=== PATIENT | female | born 1945 | race Caucasian/White ===

== ENCOUNTER 2019-09-01 13:21 | Outpatient (CLI) | payer MEDICARE ==
--- NOTE | 2019-09-01 15:00 | MRI ---
MRI LUMBAR SPINE WITHOUT CONTRAST: HISTORY: Low back pain. Recent fall. COMPARISON: 06/12/2017 FINDINGS: Vertebral body numbering will be kept consistent with the prior exam. The edema previously associated with the L5 vertebral body is no longer present. There is now prominent increased T2 signal and dimi nished T1 signal throughout the sacrum, including dominant, vertically oriented signal abnormalities along each side of the sacral body. No displacement. Minimal chronic appearing loss of height of the T11 vertebral body, the L2 vertebral body and the L4 superior endplate without residual edema. The conus medullaris has a normal appearance. Discogenic endplate changes within the bone marrow. T12-L1: Mild disk bulge. Osteophytosis. Central canal and neural foramina remain patent. L1-L2: Mild disk bulge. Osteophytosis. Central canal is patent. Mild right foraminal stenosis. L2-L3: Disk space narrowing. Mild disk bulge and circumferential degenerative changes. Mild stenosis of the central canal. L3-L4: Minimal degenerative retrolisthesis. Posterior disk bulge and circumferential degenerative chong nges. Moderate stenosis of the central canal. Moderate right and severe left foraminal stenosis. L4-L5: Grade 1 degenerative spondylolisthesis. Posterior pseudo bulge of the disk. Thecal sac remains patent. Moderate right and severe left foraminal stenosis. L5-S1: Osteophytosis of the facets. Thecal sac and neural foramina remain patent. IMPRESSION: 1. Severe insufficiency fracture involving both sides of the sacrum. No displacement evident on MRI. 2. Interval resolution of the edema associated with the mild L5 compression injury. 3. Multilevel degenerative changes throughout the lumbar spine as detailed above including severe for aminal stenoses and significant central canal stenosis. POS: TPC
== END 2019-09-01 13:22 | disposition home or self-care (01) ==
LOC: MRI 13:21
PROVIDERS: ATTEND Neurological Surgery
DX: M48.56XA Collapsed vertebra, not elsewhere classified, lumbar region, initial encounter for fracture (principal); M54.5 Low back pain; S32.10XA Unspecified fracture of sacrum, initial encounter for closed fracture; M47.816 Spondylosis without myelopathy or radiculopathy, lumbar region; M48.061 Spinal stenosis, lumbar region without neurogenic claudication
CPT/HCPCS: 72148

== ENCOUNTER 2020-01-01 12:25 | Inpatient (IN) | payer MEDICARE ==
[~2020-01-01 12:25] MED LIST: Dexamethasone 20 MG/5 ML VIAL ONE; Lidocaine 1% PF 5 ML VIAL ONE; Ondansetron PF 4 MG/2 ML Vial ONE; PHENYLEPHRINE-NS 100 MCG/ML 10 ML SYRINGE ONE; PROPOFOL 200 MG/20 ML VIAL ONE
[2020-01-01] MEDS ORDERED: Morphine 4 MG/ML VIAL ONE (13:55)
--- NOTE | 2020-01-01 15:03 | RAD ---
AP PELVIS: Date: 01/01/2020 HISTORY: Fall. FINDINGS: The bony pelvis is intact. There is an intertrochanteric fracture at the left hip. There are degenerative changes at both hips. IMPRESSION: Acute left hip fracture. POS: JIE
--- NOTE | 2020-01-01 15:03 | RAD ---
PORTABLE CHEST: Date: 01/01/2020 HISTORY: Fall. FINDINGS: Lungs are clear. Heart and mediastinum unremarkable. Review of osseous structures show deformity of t he right humeral head and neck from old fracture and operative changes at the left humeral head and n annetta. IMPRESSION: No acute abnormality. POS: NICOLE
--- NOTE | 2020-01-01 15:04 | RAD ---
LEFT HIP 2 VIEWS: Date: 01/01/2020 HISTORY: Fall. FINDINGS: Intertrochanteric fracture involving the proximal left femur with slight displacement. Degenerative c hanges at the hip joint. IMPRESSION: Acute left hip fracture. POS: JIE
[2020-01-01 15:24] LABS: #Basophils 0.1 thou/uL (0.0-0.2); #Eosinphils 0.1 thou/uL (0.0-0.7); #Lymphocytes 2.1 thou/uL (1.20-3.40); #Monocytes 1.1 thou/uL (0.11-0.59); #Neutrophils 4.6 thou/uL (1.40-6.50); %Basophils 1.5 % (0.0-1.0); %Eosinophils 1.1 % (0.0-10.0); %Monocytes 13.9 % (0.0-10.0); %Neutrophils 57.4 % (42.0-75.0); Hemoglobin 13.7 g/dL (12.0-16.0); Mean Corpuscular Hemoglobin 33.3 pg (27.0-31.0); Mean Platelet Volume 6.6 fL (7.4-10.4); Platelet Count 329 thou/uL (130-400); RBC Distribution Width 12.9 % (11.5-14.5); Red Blood Cell (RBC) Count 4.11 mill/uL (4.20-5.40); White Blood Cell (WBC) Count 8.1 thou/uL (4.8-10.8)
[2020-01-01 15:32] LABS: PTT 30.3 SEC (22.9-36.1); Prothrombin Time 13.1 SEC (12.0-14.7)
[2020-01-01 15:48] LABS: ALT (SGPT) 14 U/L (8-55); AST (SGOT) 16 U/L (5-34); Albumin 4.3 g/dL (3.4-4.8); Alkaline Phosphatase 99 U/L (40-110); Anion Gap 16 mmol/L (10-20); BUN (Urea Nitrogen) 15 mg/dL (9.8-20.1); Bilirubin, Total 0.4 mg/dL (0.2-1.2); Calc. Creatinine Clearance 0 mL/min (70-130); Carbon Dioxide 24 mmol/L (23-31); Chloride 103 mmol/L (98-107); Estimated GFR-MDRD 49; Globulin 2.5 g/dL (2.4-3.5); Glucose 148 mg/dL (83-110); Magnesium 1.7 mg/dL (1.6-2.6); Phosphorus 3.6 mg/dL (2.3-4.7); Protein, Total 6.8 g/dL (6.0-8.3); Sodium 139 mmol/L (136-145)
[2020-01-01] MEDS ORDERED: Morphine 2 MG/ML SYRINGE SLOW IVP PRN ×2 (16:46→19:43)
[2020-01-01] MEDS ORDERED: Insulin Regular 300 UNITS/3 ML VIAL SC PRN (16:46)
[2020-01-01] MEDS ORDERED: Dextrose 50% Abboject 50 ML SYRINGE SLOW IVP PRN (16:46)
[2020-01-01] MEDS ORDERED: Dextrose 5% in Water 1,000 ML IV PRN (16:46)
[2020-01-01] MEDS ORDERED: Ondansetron PF 4 MG/2 ML Vial IVP PRN (16:46)
[2020-01-01] MEDS ORDERED: Morphine 4 MG/ML VIAL SLOW IVP PRN (16:46)
[2020-01-01] MEDS ORDERED: Ondansetron ODT 4 MG TAB PO PRN (16:46)
[2020-01-01] MEDS ORDERED: hydrALAZINE 20 MG/ML VIAL SLOW IVP PRN (16:46)
[2020-01-01] MEDS ORDERED: Cyclobenzaprine 10 MG TAB PO PRN (16:53)
[2020-01-01] MEDS ORDERED: Sodium Chloride 0.9% 1,000 ML IV SCH (17:00)
[2020-01-01] MEDS ORDERED: Fentanyl 100 MCG/2 ML VIAL ONE (17:20)
--- NOTE | 2020-01-01 17:24 | HP ---
REQUESTING PHYSICIAN: Dr. Lopez. ATTENDING: Dr. Head. CONSULTS: Orthopedic Surgery, Dr. Koehler. CHIEF COMPLAINT: Tripped and fell. HISTORY OF PRESENT ILLNESS: This is a 74-year-old lady, who presented to the emergency room via EMS after she tripped over her dog at her home causing her to fall landing on her left side. The patient denies hitting her head or having any loss of consciousness. The patient states that she had just gotten home from Thursday school and was about to get lunch. The patient denies feeling weak, dizzy, having any chest pain or shortness of breath prior to tripping over the dog. The patient denies being on any anticoagulation. The patient was given fentanyl by EMS for pain and also morphine in the emergency room for pain. Currently, her pain is tolerable at this time. The patient frequently gets her right knee injected by Dr. Olmedo. The patient states she is due for an injection. She complains of some soreness into her right knee after falling. 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 PAST SURGICAL HISTORY: Hysterectomy, cholecystectomy, left arm injury screws placed, tonsillectomy. SOCIAL HISTORY: Reports occasional alcohol use, 2 to 3 glasses of wine a week, no illicit drug use, no history of smoking. The patient lives at home with her . ALLERGIES: ADHESIVE TAPE, SULFA CAUSES HER TO BE NAUSEATED. CURRENT MEDICATIONS: 1. Metformin 1000 mg 2 times a day. 2. Torsemide 20 mg once a day. 3. Escitalopram 20 mg once a day. 4. Simvastatin 20 mg a day. 5. Trazodone 150 mg as needed. 6. Diltiazem extended release 240 mg. REVIEW OF SYSTEMS: A 10-point review of systems is negative unless otherwise indicated in the above HPI. PHYSICAL EXAMINATION: VITAL SIGNS: Blood pressure 138/83, pulse 64, respirations 16, SpO2 of 96% on room air, temperature 98.3. GENERAL: Well-appearing elderly female, awake, alert, in no distress. HEENT: Head is atraumatic and normocephalic. Extraocular muscles intact, oropharynx exam normal, mucous membranes are moist. NECK: Normal range of motion. No cervical spine tenderness. Trachea midline. CHEST: Equal chest rise and fall, bilateral breath sounds clear, no wheezing, rales, or rhonchi. CARDIAC: Regular rate, regular rhythm. No murmurs. No pedal edema. ABDOMEN: Soft, nontender, nondistended. EXTREMITIES: Left lower extremity with external rotation and shortening, distal pulses 2+, normal sensation, all other extremities are unremarkable. Distal pulses intact. Normal range of motion. No obvious deformity to the right knee, but the patient reports chronic right knee pain. Varicose veins noted on bilateral lower extremities. NEUROLOGIC: No focal deficit, GCS 15. LABORATORY DATA: WBC 8.1, RBC 4.11, hemoglobin 13.7, hematocrit 41.4, platelets 329. PT 13.1, INR 1.0. APTT 30.3. Sodium 139, potassium 4.0, chloride 103, BUN 15, creatinine 1.09, estimated GFR 49, calcium 10.0, phosphorus 3.6, magnesium 1.7. AST 16, ALT 14, alkaline phos 99. Pelvis x-ray intertrochanteric fracture at the left hip. There are degenerative changes at both hips. Left intertrochanteric fracture involving the proximal femur with slight displacement. Right knee x-ray, pending. IMPRESSION: 1. Ground level fall. 2. Left intertrochanteric proximal femur fracture. 3. History of hypertension, diabetes, splenectomy, pancreatic tumor. PLAN: N.p.o. Pain management. The patient will go to the OR later this evening with Dr. Koehler for repair of the left IT hip fracture. We will place the patient on maintenance fluids at normal saline at 100 mL an hour. The patient will be admitted to the surgical floor postop. We will have Physical Therapy and Occupational Therapy work with the patient most likely tomorrow morning. We will place a rehab screen as the patient may likely need additional inpatient rehab. We will place the patient on a sliding scale with q.6 hours Accu-Chek. The plan was discussed with the attending who agrees. The plan was discussed with the patient who agrees. Job ID: [id number] [facility]
[2020-01-01] MEDS ORDERED: Promethazine HCl 25 MG/ML VIAL SLOW IVP PRN (17:41)
[2020-01-01] MEDS ORDERED: Promethazine HCl 25 MG/ML VIAL IM PRN (17:41)
[2020-01-01] MEDS ORDERED: Ondansetron HCl/PF 4 MG/2 ML Vial IVP PRN (17:41)
--- NOTE | 2020-01-01 17:57 | RAD ---
EXAM: XR Knee Rt 4 View STANDARD PROVIDED CLINICAL HISTORY: Pain FINDINGS: There is no evidence for fracture or other acute osseous abnormality. Alignment appears anatomic. Adv anced degenerative changes are seen with medial femorotibial joint space narrowing and intra-articular bodies overlying the expected location of Farrell's cyst. IMPRESSION: No evidence for an acute osseous abnormality. If there is persistent clinical concern, conservative m anagement and follow-up imaging advised.
--- NOTE | 2020-01-01 19:06 | RAD ---
EXAM: XR Hip Lt 2-3 View PROVIDED CLINICAL HISTORY: ORIF COMPARISON: 01/01/2020 1:44 PM FINDINGS: Spot fluoroscopic frontal and frog-leg lateral views of the left hip demonstrate interval placement o f dynamic hip screw transfixing previously described left proximal femoral fracture with resultant improved alignment. IMPRESSION: As above.
[2020-01-01] MEDS: Gabapentin 100 MG CAP PO SCH (21:00)
[2020-01-01] MEDS: Senokot S 8.6-50 MG TAB PO SCH (21:00)
[2020-01-01] MEDS: traMADol HCl 50 MG TAB PO PRN (21:01)
[2020-01-01] MEDS: traMADol HCl 50 MG TAB PO SCH (21:02)
[2020-01-01] MEDS: Acetaminophen 500 MG TAB PO SCH (21:02)
[2020-01-01 21:11] VITALS: BMI 23.3
--- NOTE | 2020-01-01 22:30 | OP ---
DATE OF PROCEDURE: 01/01/2020 PREOPERATIVE DIAGNOSIS: Left intertrochanteric femur fracture. POSTOPERATIVE DIAGNOSIS: Left intertrochanteric femur fracture. PROCEDURE PERFORMED: Dynamic hip screw, left intertrochanteric femur fracture. ANESTHESIA: General. IMPLANT: Synthes 3-hole 135 degree DHS side plate with 95 mm hip screw. ESTIMATED BLOOD LOSS: 50 mL. COMPLICATIONS: None. DRAINS: None. SPECIMEN: None. OUTCOME: Satisfactory reduction and hardware placement. INDICATIONS: The patient is a pleasant 74-year-old lady, status post ground level fall sustaining an intertrochanteric femur fracture. After discussion with the patient including risks and benefits, we decided to proceed with open reduction and internal fixation of this fracture with a DHS device. Informed consent has been obtained. I believe all questions have been answered. DESCRIPTION OF PROCEDURE: The patient was brought to the operating room and a time-out performed followed by induction of general anesthesia. Next, she was positioned supine on the fracture table with the well leg held in extension and slight hyperextension with the injured extremity held in longitudinal traction and slight internal rotation. Next, a sterile prep and drape was performed of this left lateral thigh. Next, a skin incision was made proximal to the greater trochanter. After skin was sharply incised, dissection was carried down to the underlying fascia amos. This was incised in line with the skin incision as was the fascia of the vastus lateralis. The muscle belly of the vastus lateralis was reflected anteriorly gaining access to the lateral cortex of the femur. A threaded guidewire was then passed from the lateral cortex of the femur up the femoral neck into the femoral head. Once appropriately positioned, measurement was taken off this pin and the step drill was set to this depth. The step drill was then passed over the guidewire, reaming the femoral neck and head. Next, 135-degree 3-hole side plate with appropriate length hip screw was inserted into the wound with hip screw driven all the way up approaching the center-center position of the femoral head. The plate was then affixed to the lateral cortex of the femur using three 4.5 mm cortical screws. Final AP and lateral C-arm images were then obtained. The wound was irrigated with bulb syringe, then closed in layers with 0 Vicryl for the tensor fascia and fascia amos followed by 2-0 Vicryl and then jessy for the skin. Xeroform gauze and tape dressing were applied to the lateral thigh and the patient was transferred to recovery room in stable condition. There were no complications. She tolerated the procedure well. Job ID: [id number]
[2020-01-01 22:48] LABS: #Basophils 0.1 thou/uL (0.0-0.2); #Lymphocytes 0.7 thou/uL (1.20-3.40); #Monocytes 0.3 thou/uL (0.11-0.59); #Neutrophils 11.9 thou/uL (1.40-6.50); %Basophils 0.5 % (0.0-1.0); %Eosinophils 0.2 % (0.0-10.0); %Lymphocytes 5.6 % (21.0-51.0); %Monocytes 2.4 % (0.0-10.0); %Neutrophils 91.3 % (42.0-75.0); Hemoglobin 12.3 g/dL (12.0-16.0); Mean Corpuscular HGB CONC 33.4 g/dL (32.0-36.0); Mean Corpuscular Hemoglobin 33.8 pg (27.0-31.0); Mean Platelet Volume 6.7 fL (7.4-10.4); Platelet Count 314 thou/uL (130-400); RBC Distribution Width 12.7 % (11.5-14.5); Red Blood Cell (RBC) Count 3.62 mill/uL (4.20-5.40)
[2020-01-01 22:54] LABS: Prothrombin Time 13.4 SEC (12.0-14.7)
[2020-01-01 23:16] LABS: Anion Gap 15 mmol/L (10-20); BUN (Urea Nitrogen) 15 mg/dL (9.8-20.1); Calc. Creatinine Clearance 41 mL/min (70-130); Calcium 9.1 mg/dL (7.8-10.44); Carbon Dioxide 23 mmol/L (23-31); Chloride 102 mmol/L (98-107); Estimated GFR-MDRD 44; Glucose 335 mg/dL (83-110); Magnesium 1.6 mg/dL (1.6-2.6); Phosphorus 5.1 mg/dL (2.3-4.7); Potassium 4.4 mmol/L (3.5-5.1); Sodium 136 mmol/L (136-145)
[2020-01-01] MEDS ORDERED: Hydrocortisone Sod Succ/PF 100 mg/2 ml Vial IVP SCH (23:45)
--- NOTE | 2020-01-01 23:45 | PRG ---
DATE OF SERVICE: 01/01/2020 SUBJECTIVE: The patient was seen this evening during rounds. She was resting comfortably and asleep with no signs of acute distress. She is postoperative day 0 after a dynamic hip screw of the left intertrochanteric femur fracture. Nursing reported the patient's blood pressure has slowly dropped since returning from the PACU now with systolic in the 90s. The patient is not tachycardic and not symptomatic. Repeat blood work completed this evening postoperatively. OBJECTIVE: VITAL SIGNS: Temperature 97.8, pulse 86, respirations 18, oxygen saturation 96% on room air, blood pressure 99/62. GENERAL: Well-appearing elderly female, lying in bed, asleep, but no signs of acute distress. PULMONARY: Equal chest rise and fall. No signs of acute respiratory distress. ASSESSMENT: 1. Status post mechanical fall from standing. 2. Left intertrochanteric femur fracture, status post repair. 3. Postoperative hypotension. 4. History of diabetes, hypertension, splenectomy, partial pancreatectomy, and depression. PLAN: Continue diabetic diet. We will continue normal saline at 100 an hour for a total of 1 L. Continue Tracy overnight. We will start her home medications as clinically indicated. We will repeat blood work this evening to include a cortisol level, and we will treat her hypotension accordingly. She will start working with Physical and Occupational Therapy in the morning and will likely need placement in an acute rehab facility. Job ID: [id number]
[2020-01-02] MEDS: Acetaminophen 500 MG TAB PO SCH ×5 (00:38→23:46)
[2020-01-02] MEDS: traMADol HCl 50 MG TAB PO SCH ×5 (00:39→23:47)
[2020-01-02] MEDS: CEFAZOLIN 2 GM in Premix Bag 1 BAG IVPB SCH ×3 (00:39→17:53)
[2020-01-02 04:54] LABS: Anion Gap 14 mmol/L (10-20); BUN (Urea Nitrogen) 15 mg/dL (9.8-20.1); Calc. Creatinine Clearance 41 mL/min (70-130); Calcium 8.8 mg/dL (7.8-10.44); Carbon Dioxide 25 mmol/L (23-31); Chloride 102 mmol/L (98-107); Estimated GFR-MDRD 43; Glucose 348 mg/dL (83-110); Magnesium 1.6 mg/dL (1.6-2.6); Phosphorus 5.2 mg/dL (2.3-4.7); Potassium 4.5 mmol/L (3.5-5.1); Sodium 136 mmol/L (136-145)
[2020-01-02 05:25] LABS: Band 34 % (5-11); Hemoglobin 11.9 g/dL (12.0-16.0); Lymphocytes 5 % (21-51); MDiff Complete? YES; Mean Corpuscular HGB CONC 33.8 g/dL (32.0-36.0); Mean Corpuscular Hemoglobin 34.2 pg (27.0-31.0); Monocytes 2 % (0-10); Neutrophil 59 % (42-75); Platelet Count 307 thou/uL (130-400); RBC Distribution Width 12.8 % (11.5-14.5); Red Blood Cell (RBC) Count 3.48 mill/uL (4.20-5.40); White Blood Cell (WBC) Count 10.3 thou/uL (4.8-10.8)
[2020-01-02] MEDS: Hydrocortisone Sod Succ/PF 100 mg/2 ml Vial IVP SCH ×4 (05:49→23:47)
[2020-01-02] MEDS: Insulin Regular 300 UNITS/3 ML VIAL SC PRN ×3 (05:50→16:38)
[2020-01-02] MEDS ORDERED: Clopidogrel Bisulfate 75 MG TAB ONE (07:48)
[2020-01-02] MEDS ORDERED: Pancrelipase DR 12000 1 CAP PO SCH (08:00)
[2020-01-02] MEDS: Pancrelipase DR 12000 1 CAP PO SCH ×3 (08:43→16:40)
[2020-01-02] MEDS: Gabapentin 100 MG CAP PO SCH ×3 (08:46→21:23)
[2020-01-02] MEDS: Senokot S 8.6-50 MG TAB PO SCH ×2 (08:47→21:22)
[2020-01-02] MEDS: metFORMIN 500 MG TAB PO SCH ×2 (08:47→16:38)
[2020-01-02] MEDS: Polyethylene Glycol 3350 17 GM Packet PO SCH (08:47)
[2020-01-02] MEDS: Escitalopram Oxalate 20 mg Tablet PO SCH (08:47)
[2020-01-02] MEDS: Enoxaparin Sodium 30 MG/0.3 ML SYRINGE SC SCH (08:48)
[2020-01-02] MEDS ORDERED: Sodium Chloride 0.9% 500 ML IV SCH (15:15)
--- NOTE | 2020-01-02 15:54 | PRG ---
DATE OF SERVICE: 01/02/2020 SUBJECTIVE: The patient was seen this morning on rounds. She was doing well and states that her pain was very well controlled. She was AAO x3. She states that she has been working with physical therapy already this morning and has been ambulatory. OBJECTIVE: VITAL SIGNS: Temp 97.7, pulse 61, blood pressure 120/70, respirations 14, and oxygen saturation 96% on room air. GENERAL: The patient is a well-appearing, elderly female, she was lying in bed , AAO x3, no acute distress. HEENT: Extraocular muscles intact, no abrasions to forehead. NECK: Full range of motion, no JVD. PULMONARY: No respiratory distress, equal chest rise bilaterally. NEUROLOGIC: AAO x3, motor intact. ASSESSMENT: 1. Status post mechanical fall from standing. 2. Left intertrochanteric femur fracture, status post repair. 3. Postoperative hypertension-asymptomatic. 4. History of diabetes, hypertension, splenectomy, partial pancreatectomy, and depression. PLAN: At this time, we will discontinue current plan of care with physical therapy and occupational therapy. She will likely need to go to rehab and Case Management has been consulted. She is ambulating well with physical therapy and is wanting to be active. Her pain is controlled with Tylenol, gabapentin, and tramadol. She also is a diabetic, on a diabetic diet, but does have blood sugars elevated close to 350. We will restart metformin at this time. This is likely due to a stress reaction and steroids. Her cortisol was not elevated, likely contributing to her postoperative hypotension. They are rebounding with cortisol on board. The patient appears to have elevating creatinine, dry on exam, so we will replace with normal saline 500 mL. We will start Lovenox 30 for VTE prophylaxis. She was supposed to be seen by Dr. Olmedo for possible knee injection, will call Dr. Olmedo's office just to make him aware that the patient is in the hospital with left intertrochanteric femur fracture. Pt seen with and care plan discussed with Dr. Huffman at bedside. Job ID: [id number] [facility]
[2020-01-02] MEDS ORDERED: traZODone HCl 50 MG TAB PO SCH (21:00)
[2020-01-02] MEDS ORDERED: Simvastatin 20 MG TAB PO SCH (21:00)
[2020-01-03 05:24] LABS: Hemoglobin 10.2 g/dL (12.0-16.0); Mean Corpuscular HGB CONC 32.5 g/dL (32.0-36.0); Mean Corpuscular Hemoglobin 33.2 pg (27.0-31.0); Platelet Count 282 thou/uL (130-400); RBC Distribution Width 12.8 % (11.5-14.5); Red Blood Cell (RBC) Count 3.08 mill/uL (4.20-5.40)
[2020-01-03 05:25] LABS: #Basophils 0.1 thou/uL (0.0-0.2); #Lymphocytes 1.6 thou/uL (1.20-3.40); #Monocytes 1.3 thou/uL (0.11-0.59); %Lymphocytes 13.5 % (21.0-51.0); %Monocytes 10.6 % (0.0-10.0); %Neutrophils 74.8 % (42.0-75.0)
[2020-01-03] MEDS: Acetaminophen 500 MG TAB PO SCH ×2 (05:40→12:07)
[2020-01-03] MEDS: traMADol HCl 50 MG TAB PO SCH ×2 (05:40→12:08)
[2020-01-03] MEDS: Hydrocortisone Sod Succ/PF 100 mg/2 ml Vial IVP SCH (05:41)
[2020-01-03] MEDS: Insulin Regular 300 UNITS/3 ML VIAL SC PRN ×3 (05:44→16:30)
[2020-01-03] MEDS: Senokot S 8.6-50 MG TAB PO SCH (08:08)
[2020-01-03] MEDS: metFORMIN 500 MG TAB PO SCH ×2 (08:09→16:30)
[2020-01-03] MEDS: Escitalopram Oxalate 20 mg Tablet PO SCH (08:09)
[2020-01-03] MEDS: Gabapentin 100 MG CAP PO SCH ×2 (08:10→15:13)
[2020-01-03] MEDS: Enoxaparin Sodium 30 MG/0.3 ML SYRINGE SC SCH (08:10)
[2020-01-03] MEDS: Polyethylene Glycol 3350 17 GM Packet PO SCH (08:10)
[2020-01-03] MEDS: Pancrelipase DR 12000 1 CAP PO SCH ×3 (08:10→16:42)
[2020-01-03] MEDS ORDERED: Torsemide 20 MG TAB PO SCH (09:00)
[2020-01-03 16:11] VITALS: BP 114/67; TEMP 97.5
--- NOTE | 2020-01-03 16:27 | DIS ---
DATE OF ADMISSION: 01/01/2020 DATE OF DISCHARGE: 01/03/2020 RESIDENT: Jose Manuel Grady DO. ADMITTING ATTENDING: Jean Huffman DO DISCHARGE ATTENDING: Jean Huffman DO PROCEDURES: 1. Hip x-ray on 01/01/2020, revealed spot fluoroscopic frontal and frog leg lateral views of the left hip demonstrate interval placement of dynamic hip screw transfixing previously described as proximal femur fracture resulted in improved alignment. Chest x-ray on 01/01/2020 revealed no acute abnormality. 2. Pelvis x-ray on 01/01/2020, revealed no acute left hip fracture. 3. Hip x-ray on 01/01/2020, revealed acute left hip fracture. 4. Knee x-ray on 01/01/2020, revealed no evidence of acute osseous abnormality of the right knee. 5. Operation on 01/01/[address] Koehler-profound dynamic hip screw, left intertrochanteric femur fracture. PRIMARY DIAGNOSES: 1. Status post mechanical fall from standing. 2. Left intertrochanteric femur fracture, status post repair. 3. Postoperative Hypotension-asymptomatic. SECONDARY DIAGNOSES: 1. Diabetes. 2. Hypertension. 3. Splenectomy. 4. Partial pancreatectomy. 5. Depression. DISCHARGE MEDICATIONS: 1. Metformin 1000 mg p.o. b.i.d. 2. Trazodone 100 mg p.o. at bedtime. 3. Torsemide 20 mg p.o. q.a.m. 4. Simvastatin 20 mg p.o. at bedtime. 5. Escitalopram 20 mg p.o. q.a.m. 6. Diltiazem 240 mg p.o. q.a.m. 7. Cremilena BENNETT 36,000 units p.o. t.i.d. with meals. 8. Tylenol 1000 mg p.o. q.6 hours. 9. Flexeril 5 mg p.o. t.i.d. p.r.n. pain. 10. Gabapentin 100 mg p.o. t.i.d. 11. DuoNeb 3 mL neb q.4 hours p.r.n. 12. MiraLAX 17 mg p.o. daily. DISCONTINUED MEDICATIONS: None. HISTORY OF PRESENT ILLNESS/HOSPITAL COURSE: Adeline Helms is a 74-year-old female, who presented to the emergency department via EMS after she tripped over her dog at home. She landed on her left side and subsequently was found to have a left intertrochanteric femur fracture. At the time of the fall, the patient denied feeling weak, dizzy, having chest pain, shortness of breath. It is not likely that this was a cardiac, neuro, or TIA/stroke event that caused her to fall. She had tripped over her dog. Dr. Koehler took her back for nailing of her intertrochanteric fracture. She tolerated the procedure well and pain was well controlled while she was at the hospital. She was discharged to rehab for short period of time to help with physical therapy and occupational therapy. Of note, the patient did have postoperative hypotension requiring the patient to have hydrocortisone initiated. She had a cortisol level approximately 7. As this is not elevated in time of a stressful event, it is likely that she is suffering from type of adrenal insufficiency. So we repleted her steroids appropriately. On day of discharge, her blood pressures were systolic in the 120s, so we discontinued her hydrocortisone. Likely the patient had elevated blood sugar secondary to the hydrocortisone and stress from fall. We continued on her mild sliding scale insulin and restarted her metformin on her second day of admission. If the patient continues to have elevated blood sugars after discontinuation of hydrocortisone, there might be a necessary to start the patient on a second agent. She has done well controlling her diabetes with just metformin, as she has previously required sulfonylurea and insulin. DISPOSITION: Stable. DISCHARGE INSTRUCTIONS: Location: [facility]. Diet: Diabetic diet. Activity: Orthopedic limitations. Followup: Follow up with Dr. Koehler as needed. Job ID: [id number]
[2020-01-03] MEDS: traMADol HCl 50 MG TAB PO PRN (16:30)
== END 2020-01-03 16:45 | DRG 481 ==
LOC: ERS 12:25 → SDC/OP 15:19 → SURG A 15:19
PROVIDERS: ADMIT Orthopaedic Surgery; ATTEND Orthopaedic Surgery
PROC: 0QS704Z Reposition Left Upper Femur with Internal Fixation Device, Open Approach (ICD-10-PCS; principal; 2020-01-01)
DX: S72.142A Displaced intertrochanteric fracture of left femur, initial encounter for closed fracture (principal); E27.40 Unspecified adrenocortical insufficiency; W01.0XXA Fall on same level from slipping, tripping and stumbling without subsequent striking against object, initial encounter; I10 Essential (primary) hypertension; E11.9 Type 2 diabetes mellitus without complications; F32.9 Major depressive disorder, single episode, unspecified; I95.81 Postprocedural hypotension; Y92.009 Unspecified place in unspecified non-institutional (private) residence as the place of occurrence of the external cause; Z90.49 Acquired absence of other specified parts of digestive tract; Z90.710 Acquired absence of both cervix and uterus; Z88.2 Allergy status to sulfonamides; Z88.8 Allergy status to other drugs, medicaments and biological substances; Z79.4 Long term (current) use of insulin
CPT/HCPCS: 36415; 36416; 71045; 72170; 76000; 80048; 80053; 82533; 83735; 84100; 85007; 85025; 85027; 85610; 85730; 86850; 86900; 86901; 93005; 96374; C1713; C1769; G0390; J0690; J1100; J1650; J1720; J1815; J2001; J2270; J2405; J2704; J3010

== ENCOUNTER 2020-09-02 01:36 | Inpatient (IN) | payer MEDICARE ==
[~2020-09-02 01:36] MED LIST changes: -Dexamethasone 20 MG/5 ML VIAL ONE; -Lidocaine 1% PF 5 ML VIAL ONE; +Morphine 4 MG/ML VIAL ONE; -PHENYLEPHRINE-NS 100 MCG/ML 10 ML SYRINGE ONE; -PROPOFOL 200 MG/20 ML VIAL ONE
[2020-09-02 01:39] LABS: #Basophils 0.1 thou/uL (0.0-0.2); #Lymphocytes 3.2 thou/uL (1.20-3.40); #Monocytes 1.4 thou/uL (0.11-0.59); #Neutrophils 8.6 thou/uL (1.40-6.50); %Basophils 0.9 % (0.0-1.0); %Eosinophils 0.3 % (0.0-10.0); %Lymphocytes 23.9 % (21.0-51.0); %Monocytes 10.7 % (0.0-10.0); %Neutrophils 64.2 % (42.0-75.0); Hemoglobin 12.8 g/dL (12.0-16.0); Mean Corpuscular HGB CONC 32.9 g/dL (32.0-36.0); Mean Corpuscular Hemoglobin 32.7 pg (27.0-31.0); Mean Corpuscular Volume 99.4 fL (78.0-98.0); Mean Platelet Volume 6.6 fL (7.4-10.4); Platelet Count 378 thou/uL (130-400); RBC Distribution Width 12.6 % (11.5-14.5); Red Blood Cell (RBC) Count 3.92 mill/uL (4.20-5.40); White Blood Cell (WBC) Count 13.3 thou/uL (4.8-10.8)
[2020-09-02 01:59] LABS: ALT (SGPT) 20 U/L (8-55); AST (SGOT) 14 U/L (5-34); Albumin 3.8 g/dL (3.4-4.8); Alkaline Phosphatase 140 U/L (40-110); Anion Gap 22 mmol/L (10-20); BUN (Urea Nitrogen) 23 mg/dL (9.8-20.1); Bilirubin, Total 0.2 mg/dL (0.2-1.2); Calc. Creatinine Clearance 0 mL/min (70-130); Carbon Dioxide 20 mmol/L (23-31); Chloride 99 mmol/L (98-107); Estimated GFR-MDRD 41; Globulin 2.7 g/dL (2.4-3.5); Glucose 186 mg/dL (83-110); Potassium 3.6 mmol/L (3.5-5.1); Protein, Total 6.5 g/dL (6.0-8.3); Sodium 137 mmol/L (136-145)
[2020-09-02] MEDS ORDERED: Morphine 4 MG/ML VIAL ONE (03:14)
[2020-09-02] MEDS ORDERED: Insulin Regular 300 UNITS/3 ML VIAL SC PRN (04:08)
[2020-09-02] MEDS ORDERED: Sodium Chloride 0.9% 1,000 ML IV SCH (04:08)
[2020-09-02] MEDS ORDERED: Morphine 2 MG/ML VIAL SLOW IVP PRN (04:08)
[2020-09-02] MEDS ORDERED: Dextrose 50% Abboject 50 ML SYRINGE SLOW IVP PRN (04:08)
[2020-09-02] MEDS ORDERED: Ondansetron PF 4 MG/2 ML Vial IVP PRN (04:08)
[2020-09-02] MEDS ORDERED: Dextrose 5% in Water 1,000 ML IV PRN (04:08)
[2020-09-02] MEDS ORDERED: Ondansetron ODT 4 MG TAB PO PRN (04:08)
[2020-09-02] MEDS: Morphine 4 MG/ML VIAL SLOW IVP PRN ×3 (05:11→19:57)
[2020-09-02] MEDS: Insulin Regular 300 UNITS/3 ML VIAL SC PRN ×2 (06:21→12:25)
[2020-09-02 07:18] VITALS: BMI 25.0
[2020-09-02] MEDS ORDERED: CEFAZOLIN 2 GM in Premix Bag 1 BAG IVPB SCH (08:30)
--- NOTE | 2020-09-02 08:59 | CON ---
DATE OF CONSULTATION: HISTORY OF PRESENT ILLNESS: We were asked to see the patient by Trauma. The patient came into the ER last night after a fall. She states she just lives with some dizziness right now. She is on a 28-day steroid taper from Dr. Lee and thinks that is causing her sugars to be out of whack, which is true and causing her some dizziness. She also thinks she might be a little dehydrated. No loss of consciousness with hitting her head, but her hip on the right hurts rather extensively. No numbness or tingling down her leg. Wiggling her toes well. Denies any headache today and no other injuries. PAST MEDICAL HISTORY: Positive for diabetes, type 2; hypertension; recent diagnosis of colitis from Dr. Lee. PAST SURGICAL HISTORY: Partial pancreas removal, hysterectomy, left hip surgery on 01/01/2020, splenectomy, tonsils. She had a recent colonoscopy that found colitis. PSYCHIATRIC HISTORY: Some mild depression. SOCIAL HISTORY: Occasional EtOH beverage, wine. No nicotine or drug use whatsoever. Resides at home with her family. is coming in this morning. CURRENT MEDICATIONS: 1. Torsemide. 2. Escitalopram. 3. Simvastatin. 4. Trazodone. 5. Steroids, unknown currently. She is on a 28-day taper. Her is bringing steroids in. ALLERGIES: ADHESIVES AND SULFA. REVIEW OF SYSTEMS: Denies any chest pain or shortness of breath. No bowel or bladder issues. She states that steroids had helped with colitis quite a bit. She does have positive dizziness when upright. Right hip pain. Otherwise, rest of review of systems is negative. PHYSICAL EXAMINATION: GENERAL: Well-nourished, well-developed female, alert, pleasant, no acute distress. Speech clear. Affect pleasant. Answers questions appropriately. Alert and oriented x3. HEENT: Scalp, I could palpate no bumps. She has little bit of tenderness to the posterior scalp. No laceration or abrasion appreciated. Face symmetric. Tongue midline. UPPER EXTREMITIES: Equal size, shape, and symmetry. Normal bulk and tone. Movements, pulses, and sensations are equal. RESPIRATORY: Respirations 16. No acute distress. PELVIS: No pain with rocking. LOWER EXTREMITIES: Right lower extremity is shortened and outward rotated but denies any numbness or tingling down the leg. Left lower extremity moving well. Right lower extremity from the knee to the feet and digits, she is moving well. Sensations are intact. DP and PT pulses are intact. She has SCDs on. ASSESSMENT: 1. Fall secondary to dizziness. 2. Right hip fracture. PLAN: Trauma will manage her medical issues. is bringing in steroids, I would like to keep those going if amenable by Trauma, so it does not flare up her colitis. We may need to get Dr. Lee to come say margarita while she is in the hospital. Surgical ferrer, we plan on doing a short TFN in the right lower extremity. I went over the procedure with the patient, I went over the risks and benefits. Her questions and concerns have been addressed, and she is amenable to go forth with surgery. The patient had a DHS placed by Dr. Koehler on 01/01/2020, so she is exactly eight months from her last surgery. She had no problems with her last surgery. She did well with anesthesia. She would like to go to rehab as she did for her last hip fracture, which I think is a reasonable option for patient. will be in sooner. If questions or concerns arise from her , we will go over those at that time. Job ID: [id number]
[2020-09-02] MEDS: Famotidine 20 MG TAB PO SCH (09:29)
--- NOTE | 2020-09-02 09:29 | CT ---
PRELIMINARY REPORT/[facility]/AFTER HOURS PROCEDURE CT BRAIN WITHOUT CONTRAST: HISTORY: Fall. Pt tripped over the air. C/O right hip pain. Broke left hip and had symptoms in June. COMPARISON: None. FINDINGS: No parenchymal hypodensity to suggest cerebral edema or contusion. No intracranial hemorrhage. No extra-axial fluid collections. No hydrocephalus, midline shift or mass-effect. Paranasal sinuses and mastoids are clear. The orbits are symmetric across the midline. Calvarium is intact. No focal scalp swelling. IMPRESSION: No acute intracranial pathology. ELECTRONICALLY SIGNED BY: Tariq Olmedo MD Sep 02, 2020 1:08:26 AM COLLETER This report is intended for review by the ordering physician only, in accordance of law. If you recei ve this report in error, please call [facility] at [phone]. FINAL REPORT EMERGENT AFTER HOURS CT BRAIN: IMPRESSION: I agree with the preliminary interpretation. No evidence for intracranial hemorrhage or mass effect. CODE QA POS: LOULOU
--- NOTE | 2020-09-02 11:02 | RAD ---
PORTABLE SUPINE CHEST: 09/02/20 PROVIDED CLINICAL HISTORY: Preop. COMPARISON: 01/01/2020 FINDINGS: The cardiac and mediastinal silhouette are unchanged in appearance. There is elevation of the right h emidiaphragm, new from prior. No focal consolidation is evident. Assessment for pleural fluid and pne umothorax is limited, given the supine nature of the study, without gross evidence for such. IMPRESSION: New elevation of the right hemidiaphragm of uncertain etiology and significance. POS: LOULOU
--- NOTE | 2020-09-02 11:23 | RAD ---
RIGHT HIP RADIOGRAPHS TWO VIEWS: 09/02/20 PROVIDED CLINICAL HISTORY: Right hip pain status post injury. FINDINGS: There is a comminuted, displaced and angulated intertrochanteric right proximal femoral fracture. No additional fracture is evident. Femoral acetabular relationship appears maintained. Right hip joint s pace appears maintained. IMPRESSION: Comminuted, displaced intertrochanteric right proximal femoral fracture. POS: LOULOU
--- NOTE | 2020-09-02 11:25 | RAD ---
PELVIC RADIOGRAPH: 09/02/20 PROVIDED CLINICAL HISTORY: Right hip pain status post injury. COMPARISON: 01/01/2020 FINDINGS: Interval postoperative changes involving the left hip, partially visualized. Comminuted, displaced in tertrochanteric fracture of the right proximal femur. No additional fracture is evident. Hip joint sp aces appear preserved. Osteophyte formation is seen about each hip. IMPRESSION: Comminuted, displaced fracture of the intertrochanteric region of the right proximal femur. POS: LOULOU
[2020-09-02] MEDS ORDERED: Lidocaine 1% PF 5 ML VIAL ONE (11:57)
[2020-09-02] MEDS ORDERED: Glycopyrrolate 0.2 MG/ML 5 ML SYRINGE ONE (11:57)
[2020-09-02] MEDS ORDERED: Dexamethasone 20 MG/5 ML VIAL ONE (11:57)
[2020-09-02] MEDS ORDERED: EPHEDRINE 25 MG/5 ML SYRINGE ONE (11:57)
[2020-09-02] MEDS ORDERED: Rocuronium Bromide 10 MG/ML (10ML VIAL) ONE (11:57)
[2020-09-02] MEDS ORDERED: PHENYLEPHRINE-NS 100 MCG/ML 10 ML SYRINGE ONE (11:57)
[2020-09-02] MEDS ORDERED: PROPOFOL 200 MG/20 ML VIAL ONE (11:57)
--- NOTE | 2020-09-02 13:56 | HP ---
REQUESTING PHYSICIAN: Kendal Shearer MD. ATTENDING SURGEON: Juanjo Gu MD. CONSULTATIONS: Orthopedics, Dr. Koehler. HISTORY OF PRESENT ILLNESS: The patient is a 75-year-old woman who was brought to the emergency department by ground EMS after having a reported fall from home. She reports she tripped on something and fell landing on her right side. She denied loss of consciousness or any syncopal type event. She did have significant right hip pain that did not allow her to ambulate. She was able to contact 911, and she was brought to the emergency department where she underwent evaluation and examination and was noted to have a right intertrochanteric femur fracture at which time we were asked to evaluate the patient for admission and obtain Orthopedic consultation. ALLERGIES: SULFA MEDICATIONS. CURRENT MEDICATIONS: 1. Torsemide 20 mg once a day. 2. Escitalopram oxalate 20 mg once a day. 3. Simvastatin 20 mg once a day. 4. Trazodone 150 mg once a day p.r.n. 5. Metformin. The patient also reports that she is on a steroid dose regimen for colitis by Dr. Lee of the GI service. PAST MEDICAL HISTORY: Diabetes, hypertension, depression. PAST SURGICAL HISTORY: Hysterectomy, pancreatic excision, splenectomy, left hip hemiarthroplasty, tonsillectomy. SOCIAL HISTORY: The patient drinks a glass of wine 2-3 times a week. Denies tobacco or drug use. She lives at home with family. Ten-point review of systems is negative as otherwise stated. PHYSICAL EXAMINATION: VITAL SIGNS: Blood pressure 158/83, respirations 18, heart rate 75, oxygen saturation is 94% on room air, temperature is 98.6. GENERAL: The patient is resting comfortably in bed. She is awake, alert, conversant, appropriate. Her [place] coma scale is 15. HEENT: Head is normocephalic and atraumatic. Eyes: Extraocular movements intact. PERRLA bilaterally. Ears are atraumatic without discharge. Nose is atraumatic without discharge. Oropharynx is clear. NECK: Nontender. Trachea is midline with no JVD. CHEST: Clear to auscultation with good inspiratory and expiratory effort. HEART: Regular rate and rhythm. ABDOMEN: Soft, nontender with active bowel sounds. EXTREMITIES: Neurovascularly intact x4. The patient does have tenderness to palpation to her right hip consistent with her fracture. BACK: By report is atraumatic and nontender. LABORATORY FINDINGS: White blood cell count 13.3, hemoglobin 12.5, hematocrit 38.9, platelets 378. Sodium 137, potassium 3.6, chloride 99, CO2 of 20, BUN 23, creatinine 1.28, glucose 186. LFTs are unremarkable. RADIOGRAPHIC REPORTS: AP chest x-ray shows elevation of the right hemidiaphragm of uncertain etiology and significance. CT of the brain without contrast shows no acute intracranial pathology. AP pelvis shows a comminuted displaced fracture of the intertrochanteric region of the right proximal femur. Views of the right hip again demonstrate a right proximal femur fracture. ASSESSMENT AND PLAN: 1. Status post mechanical fall. 2. Right intertrochanteric femur fracture. 3. Acute pain secondary to above. 4. History of hypertension, diabetes, and depression. Plan will be to admit the patient to the surgical floor. She will be kept n.p.o. with plans to go to the OR with Dr. Koehler. She will have sliding scale insulin. We will resume home medications as soon as feasible. Postoperatively, we will begin physical and occupational therapy. We will do pain control, pulmonary toilet, gastritis, and mechanical VTE prophylaxis. The evaluation, examination, laboratory and radiographic findings were discussed with Dr. Gu who will see the patient later this morning. Job ID: [id number]
[2020-09-02] MEDS ORDERED: Fentanyl 100 MCG/2 ML VIAL ONE ×2 (15:58→18:57)
[2020-09-02] MEDS ORDERED: Lidocaine 2% Jelly 5 ML TUBE ONE (15:58)
--- NOTE | 2020-09-02 17:27 | PDOC.BPN ---
- Brief Progress Note Encounter Date: 09/02/20 I have discussed the patient with the advanced practice provider and agree with the findings and plan of care annotated in their note dated September 02, 2020. I have examined the patient and reviewed the pertinent radiographic and laboratory findings. Briefly, 75-year-old female status post mechanical fall from standing without loss of consciousness. On arrival, she was hemodynamically stable with a GCS of 15. PLAN: Right intertrochanteric hip fracture: Orthopedics consulted. Plans for ORIF today Diabetes mellitus: Sliding scale insulin. Resume home medications postoperatively Hypertension: Hydralazine as needed. Resume home medications postoperatively Urinary retention: Tracy catheter placed preoperatively
[2020-09-02] MEDS ORDERED: Ondansetron HCl/PF 4 MG/2 ML Vial IVP PRN (18:27)
[2020-09-02] MEDS ORDERED: Promethazine HCl 25 MG/ML VIAL IM PRN (18:27)
[2020-09-02] MEDS ORDERED: Promethazine HCl 25 MG/ML VIAL SLOW IVP PRN (18:27)
[2020-09-02] MEDS: traZODone HCl 50 MG TAB PO SCH (19:57)
[2020-09-02] MEDS: Atorvastatin Calcium 10 MG TAB PO SCH (19:57)
--- NOTE | 2020-09-02 20:10 | RAD ---
TWO VIEWS RIGHT FEMUR: Date: 09-02-2020 PROVIDED CLINICAL HISTORY: ORIF FINDINGS: Examination performed earlier same date. Spot fluoroscopic images of the right femur demonstrate interval antegrade intramedullary femoral adalid l with interlocking proximal and distal screws transfixing intertrochanteric right proximal femoral f racture in improved alignment. IMPRESSION: As above. POS: LOULOU
[2020-09-02] MEDS ORDERED: Cyclobenzaprine 10 MG TAB PO PRN (21:33)
[2020-09-02] MEDS: Acetaminophen 500 MG TAB PO SCH (23:52)
[2020-09-02] MEDS: traMADol HCl 50 MG TAB PO PRN (23:53)
[2020-09-02] MEDS: CEFAZOLIN 2 GM in Premix Bag 1 BAG IVPB SCH (23:53)
[2020-09-03 05:17] LABS: #Lymphocytes 0.7 thou/uL (1.20-3.40); #Monocytes 0.5 thou/uL (0.11-0.59); #Neutrophils 10.2 thou/uL (1.40-6.50); %Basophils 0.1 % (0.0-1.0); %Lymphocytes 6.1 % (21.0-51.0); %Monocytes 4.5 % (0.0-10.0); %Neutrophils 89.3 % (42.0-75.0); Hemoglobin 11.5 g/dL (12.0-16.0); Mean Corpuscular HGB CONC 32.7 g/dL (32.0-36.0); Mean Corpuscular Hemoglobin 33.3 pg (27.0-31.0); Mean Platelet Volume 6.7 fL (7.4-10.4); Platelet Count 342 thou/uL (130-400); RBC Distribution Width 12.7 % (11.5-14.5); Red Blood Cell (RBC) Count 3.45 mill/uL (4.20-5.40); White Blood Cell (WBC) Count 11.4 thou/uL (4.8-10.8)
[2020-09-03] MEDS: Acetaminophen 500 MG TAB PO SCH ×3 (05:35→17:22)
[2020-09-03 05:39] LABS: Anion Gap 15 mmol/L (10-20); BUN (Urea Nitrogen) 22 mg/dL (9.8-20.1); Calc. Creatinine Clearance 36 mL/min (70-130); Calcium 8.7 mg/dL (7.8-10.44); Carbon Dioxide 22 mmol/L (23-31); Chloride 102 mmol/L (98-107); Estimated GFR-MDRD 35; Glucose 447 mg/dL (83-110); Potassium 5.1 mmol/L (3.5-5.1); Sodium 134 mmol/L (136-145)
[2020-09-03] MEDS: Insulin Regular 300 UNITS/3 ML VIAL SC PRN (06:08)
[2020-09-03] MEDS: Famotidine 20 MG TAB PO SCH (08:59)
[2020-09-03] MEDS: CEFAZOLIN 2 GM in Premix Bag 1 BAG IVPB SCH ×2 (09:00→17:21)
[2020-09-03] MEDS ORDERED: Insulin Regular 300 UNITS/3 ML VIAL SC PRN (09:00)
[2020-09-03] MEDS: Torsemide 20 MG TAB PO SCH (09:00)
[2020-09-03] MEDS: traMADol HCl 50 MG TAB PO PRN ×2 (10:00→21:17)
--- NOTE | 2020-09-03 10:00 | OP ---
DATE OF PROCEDURE: 09/02/2020 PREOPERATIVE DIAGNOSIS: Right intertrochanteric femur fracture. POSTOPERATIVE DIAGNOSIS: Right intertrochanteric femur fracture. PROCEDURE PERFORMED: TFN of right intertrochanteric femur fracture. ANESTHESIA: General. SQUARING MACHINE OPERATOR: Jose Noyola PA-C IMPLANTS: Synthes TFNA 14 x 380 mm. BLOOD LOSS: 100 mL. COMPLICATIONS: None. DRAINS: None. SPECIMENS: None. OUTCOME: Satisfactory. INDICATIONS: The patient is a 75-year-old lady, status post ground-level fall, sustaining an intertrochanteric femur fracture with some extension down into the diaphysis just below the level of lesser trochanter. After discussion with the patient including risks and benefits, we decided to proceed with surgical stabilization with an intramedullary hip screw. Informed consent has been obtained. I believe, all questions answered. DESCRIPTION OF PROCEDURE: The patient was brought to the operating room and a time-out performed followed by induction of general anesthesia. Next, she was positioned supine on the fracture table with the injured extremity held in longitudinal traction and the well leg held in extension at the hip to allow for AP and lateral C-arm imaging of the right leg. Next, a sterile prep and drape was performed of the right lateral thigh. An incision was made proximal to the tip of the greater trochanter. After skin was sharply incised, dissection was carried down bluntly, exposing to palpation the tip of the greater trochanter. Next, a threaded guidewire was passed from the starting point into the proximal intramedullary canal of the femur. This was checked with both AP and lateral C-arm imaging. Next, a reamer was passed over this threaded guidewire to open the proximal femur to accept the nail. A ball-tipped guidewire was then passed down the femur and a 15-mm reamer was passed over this ball-tipped guidewire, essentially functioning as a sound to allow for passage of the 14-mm nail. Next, a 14 x 380-mm nail was passed down the femoral canal. Once delivered to an appropriate depth, a 2nd incision was made distal to the 1st at the lateral aspect of the thigh and a jig for the hip screw was introduced. The threaded guidewire was again passed through the lateral cortex of the femur up the femoral neck to the femoral head. Once in appropriate alignment, the guidewire was used to measure length for screw and reaming. The step reamer was passed over the guidewire and then the hip screw was introduced, approaching a [id number] position. Next, a single distal cross-lock screw was placed using freehand technique. At the completion of this, AP and lateral C-arm images were obtained, that showed anatomic alignment of the fracture. The wounds were irrigated with bulb syringe. The proximal wound closed in layers with 0 Vicryl deep followed by 2-0 Vicryl and then jessy for the skin. Iliff were used for the small cross-lock incision as well as the hip screw incision. Xeroform gauze tape dressing was applied to the lateral thigh and then the patient was transferred to recovery room in stable condition. There were no complications and the patient tolerated the procedure well. Job ID: [id number]
[2020-09-03 12:58] LABS: SARS-CoV-2 MS2 Positive; SARS-CoV-2 N Gene Negative; SARS-CoV-2 S Gene Negative; SARS-CoV-2 by NAA Not Detected (NotDetected); SARS-CoV-2 orf1ab Negative
[2020-09-03] MEDS ORDERED: Dextrose 50% Abboject 50 ML SYRINGE SLOW IVP PRN (16:40)
[2020-09-03] MEDS ORDERED: HumaLOG 300 UNITS/3 ML VIAL SC PRN (16:40)
[2020-09-03] MEDS ORDERED: Dextrose 5% in Water 1,000 ML IV PRN (16:40)
[2020-09-03] MEDS: HumaLOG 300 UNITS/3 ML VIAL SC PRN ×2 (17:22→21:32)
[2020-09-03] MEDS ORDERED: HumaLOG 300 UNITS/3 ML VIAL SC SCH (19:15)
[2020-09-03] MEDS: traZODone HCl 50 MG TAB PO SCH (21:16)
[2020-09-03] MEDS: Atorvastatin Calcium 10 MG TAB PO SCH (21:17)
[2020-09-04] MEDS: Acetaminophen 500 MG TAB PO SCH ×3 (00:12→12:49)
[2020-09-04] MEDS: CEFAZOLIN 2 GM in Premix Bag 1 BAG IVPB SCH ×2 (00:13→09:10)
[2020-09-04] MEDS: HumaLOG 300 UNITS/3 ML VIAL SC PRN (05:49)
--- NOTE | 2020-09-04 06:30 | PRG ---
DATE OF SERVICE: 09/03/2020 SUBJECTIVE: The patient is a 75-year-old female, postop day 1 from right intertrochanteric hip fracture, status post TFN. The patient reports pain is well controlled. She has not yet worked with physical or occupational therapy. Dr. Lee was contacted regarding the patient's home steroid medication. He states it is vital to continue daily budesonide 6 mg daily for colitis management. OBJECTIVE: VITAL SIGNS: Temperature 98.3 Fahrenheit, blood pressure 109/67, heart rate 74, respiratory rate 16, oxygen saturation 96% on room air. GENERAL: The patient is resting comfortably in bed. She is awake, alert, and conversational. Her [place] Coma Score is 15. HEENT: Unremarkable. LUNGS: Clear to auscultation bilaterally HEART: Regular rate and rhythm. ABDOMEN: Soft, nontender. Active bowel sounds. EXTREMITIES: Neurovascularly intact x4. Postop bandage in place and is dry and clean. LABORATORY FINDINGS: Hemoglobin 11.5, hematocrit 35.1, MCV 102, platelet count 342. Sodium 134, potassium 5.1, creatinine 1.45, magnesium 2.0, phosphorus 6.0, glucose ranging 170s to 440s in the past 24 hours. RADIOGRAPHIC REPORTS: None to review this morning. ASSESSMENT AND PLAN: 1. Status post mechanical fall. 2. Right intertrochanteric femur fracture, status post TFN. 3. History of hypertension, diabetes, and depression. Plan of care is to continue physical and occupational therapy. Pain is adequately controlled at this time. Continue pulmonary toilet. The patient will be started on her home steroid dose of budesonide 6 mg daily. Patient's funeral pre arrangement specialist will be contacted to obtain home DM medication regimen. The patient is receptive to the idea of rehab. Case Management has been consulted and will coordinate placement. Patient was seen and evaluated by Dr. Huffman during morning rounds. Discussed plan of care with the patient who is in agreement. Job ID: [id number] [facility]
[2020-09-04] MEDS: HumaLOG 300 UNITS/3 ML VIAL SC SCH ×2 (07:53→12:50)
[2020-09-04] MEDS: Famotidine 20 MG TAB PO SCH (07:55)
[2020-09-04] MEDS: Torsemide 20 MG TAB PO SCH (07:56)
[2020-09-04] MEDS ORDERED: Escitalopram Oxalate 20 mg Tablet PO SCH (09:00)
[2020-09-04] MEDS: traMADol HCl 50 MG TAB PO PRN (10:06)
[2020-09-04 16:50] VITALS: BP 110/69; TEMP 97.9
[2020-09-04] MEDS ORDERED: Aspirin 81 mg Enteric Coated Tablet PO SCH (21:00)
--- NOTE | 2020-09-05 15:54 | DIS ---
DATE OF ADMISSION: 09/02/2020 DATE OF DISCHARGE: 09/04/2020 ATTENDING: Dr. Gu. DISCHARGE ATTENDING: Dr. Huffman. CONSULTS: Orthopedic Surgery, Dr. Koehler. PROCEDURE: On 09/02/2020, TFN of the right intertrochanteric femur fracture. PRIMARY DIAGNOSES: Right intertrochanteric femur fracture, mechanical fall. SECONDARY DIAGNOSES: Hypertension, diabetes, colitis, depression. DISCHARGE MEDICATIONS: 1. Acetaminophen 1000 mg p.o. q.6 hours. 2. Aspirin 81 mg p.o. b.i.d. 3. Entocort EC 6 mg p.o. q.a.m. 4. Flexeril 5 mg p.o. 3 times a day as needed for muscle spasm. 5. Diltiazem 240 mg p.o. q.a.m. 6. Lexapro 20 mg p.o. daily. 7. Pepcid 20 mg p.o. daily. 8. Humalog 10 units subcutaneously 3 times a day with meals. 9. Humalog 5 units subcutaneously 3 times a day with meals. 10. DuoNeb as needed. 11. Zofran ODT 4 mg as needed for nausea. 12. Simvastatin 20 mg at bedtime. 13. Demadex 20 mg p.o. q.a.m. 14. Tramadol 50 mg p.o. q.6 hours p.r.n. pain. No discontinued medications. HISTORY OF PRESENT ILLNESS AND HOSPITAL COURSE: This is a 75-year-old lady who was brought to the emergency room by ground EMS after having a reported fall at home. The patient reports she tripped and fell landing on her right side. The patient denies any loss of consciousness or hitting her head. The patient denied any dizziness or syncopal type event. The patient was evaluated and found to have a right intertrochanteric femur fracture. The patient's pain was well controlled pre and postop. The patient was able to work with physical therapy. The patient tolerated a diabetic diet. On the day of discharge, the patient's vital signs were stable and her exam was unremarkable including cardiopulmonary and GI exam. The patient was examined by Dr. Huffman on the day of discharge. The patient was deemed stable for discharge to inpatient rehab for continued physical and occupational therapy. DISPOSITION: Stable. DISCHARGE INSTRUCTIONS: 1. Location: [facility]. 2. Diet: Diabetic diet. 3. Activity: Orthopedic limitations, weightbearing as tolerated. 4. Followup: With Dr. Koehler in 14 days. No need to follow up with Trauma Services. Please call for any questions. Job ID: [id number]
== END 2020-09-04 17:00 | DRG 482 ==
LOC: ERS 01:36 → SURG B 01:40
PROVIDERS: ADMIT Surgery; ATTEND Surgery
PROC: 0QS606Z Reposition Right Upper Femur with Intramedullary Internal Fixation Device, Open Approach (ICD-10-PCS; principal; 2020-09-02)
DX: S72.141A Displaced intertrochanteric fracture of right femur, initial encounter for closed fracture (principal); F32.9 Major depressive disorder, single episode, unspecified; E11.9 Type 2 diabetes mellitus without complications; W01.0XXA Fall on same level from slipping, tripping and stumbling without subsequent striking against object, initial encounter; R33.9 Retention of urine, unspecified; I10 Essential (primary) hypertension; Z90.49 Acquired absence of other specified parts of digestive tract; Z88.2 Allergy status to sulfonamides; Z79.899 Other long term (current) drug therapy; Z90.710 Acquired absence of both cervix and uterus; E86.0 Dehydration; Z20.828 Contact with and (suspected) exposure to other viral communicable diseases
CPT/HCPCS: 36415; 36416; 70450; 71045; 72170; 76000; 80048; 80053; 83735; 84100; 85025; 87635; 93005; 96374; 96375; 96376; C1713; J0690; J1100; J1815; J2270; J2405; J2704; J3010; U0003

== ENCOUNTER 2021-03-08 12:41 | Outpatient (CLI) | payer MEDICARE | END 2021-03-08 12:42 | disposition home or self-care (01) | LOC: TBSIIMAG 12:41 | PROVIDERS: ATTEND Neurological Surgery | DX: M47.24 Other spondylosis with radiculopathy, thoracic region (principal); M47.22 Other spondylosis with radiculopathy, cervical region; M54.5 Low back pain; M47.816 Spondylosis without myelopathy or radiculopathy, lumbar region; M48.04 Spinal stenosis, thoracic region; M48.03 Spinal stenosis, cervicothoracic region; M48.54XA Collapsed vertebra, not elsewhere classified, thoracic region, initial encounter for fracture | CPT/HCPCS: 72141; 72146; 72148 ==

== ENCOUNTER 2021-04-25 10:18 | Outpatient (CLI) | payer MEDICARE ==
[2021-04-25 11:20] LABS: Hemoglobin 12.9 g/dL (12.0-15.5); Mean Corpuscular HGB CONC 32.5 g/dL (32.0-36.0); Mean Corpuscular Hemoglobin 31.7 pg (27.0-33.0); Mean Corpuscular Volume 97.5 fl (81.6-98.3); Platelet Count 376 10x3/uL (150-450); RBC Distribution Width 14.1 % (11.5-14.5); Red Blood Cell (RBC) Count 4.07 10x6/uL (3.90-5.03); White Blood Cell (WBC) Count 7.7 10x3/uL (3.5-10.5)
[2021-04-25 11:34] LABS: Prothrombin Time 11.5 sec (9.5-12.1)
[2021-04-25 11:35] LABS: Anion Gap 15 mmol/L (10-20); BUN (Urea Nitrogen) 13 mg/dL (9.8-20.1); Calc. Creatinine Clearance 0 mL/min (70-130); Calcium 9.9 mg/dL (7.8-10.44); Carbon Dioxide 25 mmol/L (23-31); Chloride 102 mmol/L (98-107); Glucose 142 mg/dL (83-110); Potassium 4.7 mmol/L (3.5-5.1); Sodium 137 mmol/L (136-145)
[2021-04-25 11:39] LABS: MDiff Complete? YES
[2021-04-25 11:44] LABS: Lymphocytes 22 % (21-51); Monocytes 18 % (0-10); Neutrophil 60 % (42-75)
== END 2021-04-25 10:19 | disposition home or self-care (01) ==
LOC: LABBT 10:18
PROVIDERS: ATTEND Orthopaedic Surgery
DX: Z01.818 Encounter for other preprocedural examination (principal); M17.11 Unilateral primary osteoarthritis, right knee
CPT/HCPCS: 80048; 85025; 85610; 87081; 93005; 93010

== ENCOUNTER 2021-04-25 10:30 | Inpatient (IN) | payer MEDICARE ==
[2021-04-29 13:37] VITALS: BMI 26.6
[2021-04-30] MEDS ORDERED: Tranexamic Acid 1,000 MG/10 ML VIAL ONE (09:22)
[2021-04-30] MEDS ORDERED: Sodium Chloride 0.9% 100 ML ONE (09:22)
[2021-04-30] MEDS ORDERED: Vancomycin 1 GM/200 ML BAG ONE (09:22)
[2021-04-30] MEDS ORDERED: EPINEPHrine 1 MG/ML AMP ONE ×2 (09:23→09:43)
[2021-04-30] MEDS ORDERED: Bupivacaine 0.25% HCL 30 ML VIAL ONE (09:23)
[2021-04-30] MEDS ORDERED: Midazolam HCl 2 mg/2 ml Vial ONE (09:47)
[2021-04-30] MEDS ORDERED: Fentanyl 100 MCG/2 ML VIAL ONE ×4 (09:47→13:41)
[2021-04-30] MEDS ORDERED: Ropivacaine 2% HCl/PF (20 MG/10 ML VIAL) ONE (10:11)
[2021-04-30] MEDS ORDERED: Ondansetron PF 4 MG/2 ML Vial ONE (10:11)
[2021-04-30] MEDS ORDERED: Bupivacaine HCl 0.5%/Epinephrine 1:200,000/PF 30 ml Vial ONE (10:11)
[2021-04-30] MEDS ORDERED: Ketorolac Tromethamine 30 MG/ML VIAL ONE (10:11)
[2021-04-30] MEDS ORDERED: Rocuronium Bromide 10 MG/ML (10ML VIAL) ONE (10:11)
[2021-04-30] MEDS ORDERED: PROPOFOL 200 MG/20 ML VIAL ONE (10:11)
[2021-04-30] MEDS ORDERED: Ondansetron PF 4 MG/2 ML Vial IVP PRN ×2 (10:15→12:27)
[2021-04-30] MEDS ORDERED: Fentanyl 100 MCG/2 ML VIAL IV PRN (10:15)
[2021-04-30] MEDS ORDERED: Ropivacaine 0.2% 550 ML 550 ML NERVE BLCK SCH (10:15)
[2021-04-30] MEDS ORDERED: traMADol HCl 50 MG TAB PO PRN ×3 (10:15→12:27)
[2021-04-30] MEDS ORDERED: Promethazine HCl 25 MG/ML VIAL IM PRN ×2 (10:15→12:27)
[2021-04-30] MEDS ORDERED: Zolpidem Tartrate 5 MG TAB PO PRN ×2 (10:15→12:27)
[2021-04-30] MEDS ORDERED: HYDROcodone/Acetaminophen 10/325 mg Tablet PO PRN ×3 (10:15→12:27)
[2021-04-30] MEDS ORDERED: Acetaminophen 325 MG TAB PO PRN (12:27)
[2021-04-30] MEDS ORDERED: diphenhydrAMINE 25 MG CAP PO PRN (12:27)
[2021-04-30] MEDS ORDERED: Fentanyl 100 MCG/2 ML VIAL SLOW IVP PRN ×2 (12:27)
[2021-04-30] MEDS: Sodium Chloride 0.9% 1,000 ML IV SCH ×2 (15:25→22:48)
[2021-04-30] MEDS: Ketorolac Tromethamine 30 MG/ML VIAL IVP SCH ×2 (15:25→18:04)
[2021-04-30] MEDS: CEFAZOLIN 2 GM in Premix Bag 1 BAG IVPB SCH (18:04)
[2021-04-30] MEDS ORDERED: Alendronate Sodium 70 mg Tablet PO SCH (19:15)
[2021-04-30] MEDS: traZODone HCl 150 MG TAB PO SCH (20:40)
[2021-04-30] MEDS: Atorvastatin Calcium 10 MG TAB PO SCH (20:40)
[2021-04-30] MEDS: Aspirin 81 mg Enteric Coated Tablet PO SCH (20:40)
[2021-04-30] MEDS ORDERED: Senokot S 8.6-50 MG TAB PO SCH (21:00)
[2021-04-30] MEDS ORDERED: Vancomycin 1 GM in Premix Bag 1 BAG IVPB SCH (23:00)
[2021-05-01] MEDS: Ketorolac Tromethamine 30 MG/ML VIAL IVP SCH ×4 (00:09→18:04)
[2021-05-01] MEDS: CEFAZOLIN 2 GM in Premix Bag 1 BAG IVPB SCH (02:24)
[2021-05-01 06:31] LABS: Mean Corpuscular HGB CONC 33.5 g/dL (32.0-36.0); Mean Corpuscular Hemoglobin 34.6 pg (27.0-31.0); Mean Platelet Volume 6.4 fL (7.4-10.4); Platelet Count 332 thou/uL (130-400); Red Blood Cell (RBC) Count 3.47 mill/uL (4.20-5.40); White Blood Cell (WBC) Count 9.4 thou/uL (4.8-10.8)
[2021-05-01 06:34] LABS: Hemoglobin A1c 7.6 % (4.0-6.0)
[2021-05-01 06:46] LABS: Anion Gap 12 mmol/L (10-20); BUN (Urea Nitrogen) 14 mg/dL (9.8-20.1); Calc. Creatinine Clearance 48 mL/min (70-130); Calcium 7.9 mg/dL (7.8-10.44); Carbon Dioxide 21 mmol/L (23-31); Chloride 106 mmol/L (98-107); Glucose 163 mg/dL (83-110); Potassium 4.2 mmol/L (3.5-5.1); Sodium 135 mmol/L (136-145)
[2021-05-01 06:47] LABS: Band 8 % (5-11); Eosinophils 1 % (0-10); Lymphocytes 15 % (21-51); MDiff Complete? YES; Monocytes 16 % (0-10); Neutrophil 56 % (42-75); Platelet Morphology Comment Appears Adequate; RBC Morphology Normal; Reactive Lymphocytes 4 % (0-10)
[2021-05-01] MEDS: glipiZIDE 5 MG TAB PO SCH ×2 (07:03→15:39)
[2021-05-01] MEDS: Cyanocobalamin (Vitamin B-12) 1,000 MCG TAB PO SCH (08:26)
[2021-05-01] MEDS: Multivitamin W/ Minerals 1 TAB PO SCH (08:27)
[2021-05-01] MEDS: Senokot S 8.6-50 MG TAB PO SCH ×2 (08:27→20:28)
[2021-05-01] MEDS: Ferrous Gluconate 324 MG TAB PO SCH ×2 (08:28→20:27)
[2021-05-01] MEDS: Cholecalciferol 1,000 UNITS (25 MCG) TAB PO SCH (08:28)
[2021-05-01] MEDS: Aspirin 81 mg Enteric Coated Tablet PO SCH ×2 (08:28→20:26)
[2021-05-01] MEDS: Escitalopram Oxalate 20 mg Tablet PO SCH (08:28)
[2021-05-01] MEDS: Lantus 1000 UNITS/10 ML VIAL SC SCH (08:30)
[2021-05-01] MEDS: Sodium Chloride 0.9% 1,000 ML IV SCH ×2 (08:32→18:08)
[2021-05-01] MEDS ORDERED: Losartan 25 MG TAB PO SCH (09:00)
[2021-05-01] MEDS ORDERED: Hydrochlorothiazide 25 MG TAB PO SCH (09:00)
[2021-05-01] MEDS: HYDROcodone/Acetaminophen 10/325 mg Tablet PO PRN (09:34)
[2021-05-01] MEDS: Atorvastatin Calcium 10 MG TAB PO SCH (20:27)
[2021-05-01] MEDS: traZODone HCl 150 MG TAB PO SCH (20:29)
[2021-05-01] MEDS ORDERED: Dextrose 5% in Water 1,000 ML IV PRN (22:13)
[2021-05-01] MEDS ORDERED: Dextrose 50% Abboject 50 ML SYRINGE SLOW IVP PRN (22:13)
[2021-05-01] MEDS ORDERED: HumaLOG 300 UNITS/3 ML VIAL SC PRN ×2 (22:13)
[2021-05-02] MEDS: Ketorolac Tromethamine 30 MG/ML VIAL IVP SCH ×2 (01:20→06:31)
[2021-05-02 03:11] VITALS: TEMP 98.4
[2021-05-02] MEDS: Sodium Chloride 0.9% 1,000 ML IV SCH (03:39)
[2021-05-02 05:39] LABS: Hemoglobin 11.4 g/dL (12.0-16.0); Mean Corpuscular HGB CONC 33.5 g/dL (32.0-36.0); Mean Corpuscular Hemoglobin 35.1 pg (27.0-31.0); Mean Platelet Volume 6.4 fL (7.4-10.4); Platelet Count 307 thou/uL (130-400); RBC Distribution Width 13.2 % (11.5-14.5); Red Blood Cell (RBC) Count 3.23 mill/uL (4.20-5.40); White Blood Cell (WBC) Count 10.3 thou/uL (4.8-10.8)
[2021-05-02] MEDS: glipiZIDE 5 MG TAB PO SCH ×2 (06:31→06:33)
[2021-05-02 07:38] VITALS: BP 106/66
[2021-05-02] MEDS: HYDROcodone/Acetaminophen 10/325 mg Tablet PO PRN (08:01)
[2021-05-02] MEDS: Lantus 1000 UNITS/10 ML VIAL SC SCH (08:02)
[2021-05-02] MEDS: Aspirin 81 mg Enteric Coated Tablet PO SCH (08:02)
[2021-05-02] MEDS: Cyanocobalamin (Vitamin B-12) 1,000 MCG TAB PO SCH (08:03)
[2021-05-02] MEDS: Cholecalciferol 1,000 UNITS (25 MCG) TAB PO SCH (08:03)
[2021-05-02] MEDS: Multivitamin W/ Minerals 1 TAB PO SCH (08:04)
[2021-05-02] MEDS: Senokot S 8.6-50 MG TAB PO SCH (08:04)
[2021-05-02] MEDS: Escitalopram Oxalate 20 mg Tablet PO SCH (08:04)
[2021-05-02] MEDS: Ferrous Gluconate 324 MG TAB PO SCH (08:04)
[2021-05-02] MEDS ORDERED: Ketorolac Tromethamine 30 MG/ML VIAL IVP PRN (12:00)
== END 2021-05-02 10:55 | disposition home or self-care (01) | DRG 470 ==
LOC: SJJU 04-30 08:14 → EDSTATUS 04-30 10:30 → SURG B 04-30 13:56
PROVIDERS: ADMIT Orthopaedic Surgery; ATTEND Orthopaedic Surgery
PROC: 0SRC0J9 Replacement of Right Knee Joint with Synthetic Substitute, Cemented, Open Approach (ICD-10-PCS; principal; 2021-04-30)
DX: M17.11 Unilateral primary osteoarthritis, right knee (principal); I10 Essential (primary) hypertension; F32.9 Major depressive disorder, single episode, unspecified; E78.5 Hyperlipidemia, unspecified; E11.69 Type 2 diabetes mellitus with other specified complication; F39 Unspecified mood [affective] disorder; Z96.642 Presence of left artificial hip joint; G47.00 Insomnia, unspecified; Z88.2 Allergy status to sulfonamides; Z79.899 Other long term (current) drug therapy; Z79.4 Long term (current) use of insulin; Z90.710 Acquired absence of both cervix and uterus; Z90.89 Acquired absence of other organs; Z90.81 Acquired absence of spleen
CPT/HCPCS: 36415; 36416; 80048; 83036; 85027; A4306; C1713; C1776; J0171; J0690; J1815; J1885; J2250; J2405; J2704; J2795; J3010; J3370; J3490; S0020